=== PATIENT | male | born 1970 | race Caucasian/White ===

== ENCOUNTER → 2021-07-12 14:00 | Outpatient (CLI) | payer OTHER, SELFPAY ==
[2021-07-12 14:50] LABS: Hematocrit 43.2 % (40-54); Hemoglobin 14.4 g/dL (13.0-16.5); Mean Corp Hgb Conc 33.3 g/dL (32-36); Mean Corpuscular Hgb 31.4 pg (27.0-32.0); Mean Corpuscular Volume 94.1 fL (80-94); Mean Platelet Vol. 8.8 fl (6.2-12.0); Platelet Count 348 K/mm3 (150-450); RBC Distribution Width CV 13.2 % (11.6-14.6); RBC Distribution Width SD 45.3 fl (35.1-43.9); Red Blood Count 4.59 M/mm3 (4.6-6.2); White Blood Count 8.2 K/mm3 (4.4-11.0)
[2021-07-12 15:03] LABS: Hemoglobin A1c 6.6 % (3.8-5.6)
[2021-07-12 15:04] LABS: Anion Gap 7 (5-15); BUN 17 mg/dL (7-18); BUN/Creat Ratio 15.6 RATIO (10-20); Calcium,Total 9.3 mg/dL (8.5-10.1); Chloride 103 mmol/L (98-107); Creatinine, Serum 1.09 mg/dL (0.70-1.30); EST Glomerular Filtration Rate 76 mL/min (>60); Est Glom Filt Rate - Afr Amer 91 mL/min (>60); Glucose 95 mg/dL (74-106); Potassium 3.8 mmol/L (3.5-5.1); Sodium Level 139 mmol/L (136-145)
== END ==
PROVIDERS: PCP Nurse Practitioner Family; Referring Provider Physician Assistant; Visit Provider Physician Assistant
DX: Z01.818 Encounter for other preprocedural examination (principal)
CPT/HCPCS: 36415; 80048; 83036; 85027; 93005

== ENCOUNTER 2021-10-16 10:30 | Outpatient (RCR) | payer OTHER, SELFPAY ==
--- NOTE | 2021-07-27 11:32 | HP.PTEVAL_ITS ---
Patient's Visit Information PERI JACKAMN is a 50 year old M referred to Physical Therapy by Ottoniel Ballard PA-C with a diagnosis of STRAIN OF MUSCLES/TENDON RTC OF LEFT SHOULDER,. Date of Evaluation: 07/27/21 Physical Therapist: Kenroy Lopez, PT, Cert MDT, OCS - Visit Plan Frequency: 1-2x /Week Duration: 3 Months Plan: S/P RTC REPAIR 07/20/21 ,~4CM TEAR 2 TENDONS. SLING 6-8 WEEKS. PT INTERVENTIONS 4-6WEEKS PHASE 1 PROM,4-6 WEEKS PHASE 2 AAROM ,PHASE 3 STRENGTH ENING RTC/SCPAULAR, MANUAL THERAPY. CP/MHP,PATIENT/FAMILY EDUACTION - Subjective This 50 y/o presents to physical therapy with RTC repair . Patient stated ~ 4cm larger tear of 2 tendons of RTC . Patient had surgery done at [facility] outpatient on 07/20/[address] Cesar. Patient d/c with sling. Patient pain oxycodone. Patient had MRI . Patient fell and injuried left shoulder hiking end of December. Patient although didn't see April. Patient is aloud to pendulums and active biceps. Denies paresthesia/tingling. Patient sleeping in recliner. Patient pain affects ability perform ADLS' ,self hygiene and housework tasks. Patient is unable to RTW. Patient goals is return to full functional use of left shoulder. RTD 07/27/21. Sling on 6-8 weeks. SOCAIL: aline iegregory. VOCATION: [employer] - Objective POSTURE: rounded shoulders. SKIN: sutures well approximate. NEURO: denies paresthesia/tingling. PROM: shoulder flexion 115 degrees, abduction in scapation 120 degrees, ER 35. MMT: NT. ELBOW AROM: WFL - Balance/Special Test Scores Quick DASH Score: 95.4525 - Goals Goal 1:: Patient to be I with HEP for RTC repair Goal Time Frame: 8-12 Weeks Goal 2:: Patient to demonstrate 75% improve for ADL's and housework acticities Goal Time Frame: 8-12 Weeks Goal 3:: Patient to improve right shoulder AROM 150 for flexion/abduction and ER 90 ,and IR l2 to improve function /ADLS' Goal Time Frame: 8-12 Weeks Goal 4:: Patient to increase strength of right RTC 4-/5 and deltoid 3+/5 to improve ADLS's and function Goal Time Frame: 8-12 Weeks Goal 5:: Patient to improve quick dash by 5-10 points to improve QOL Goal Time Frame: 8-12 Weeks - Rehabilitation Potential Physical Therapy Diagnosis: This patient had s/p RTC repair on 07/20/21 with mild pain ,decrease ROM ,strength impairs function and ADLS Rehabilitation Potential: Good - Anticipated Interventions Patient/Client Instruction: Educate patient on: Condition, Plan of Care For the Purpose of:: To decrease pain, To decrease swelling/inflammation, To increase ROM, To improve muscle performance and motor function, To improve ability to perform ADL's, To increase tolerance to activity/condition/position, To improve performance and independence with ADL's, To improve ability of physical actions for home/community/work/leisure, To improve health of tissue, To decrease soft tissue restriction, To increase flexibility/ROM, To reduce risk of recurrence Therapeutic Exercise to Include: Strength training, Postural training, Flexibilty training, Passive ROM, Dynamic Lumbar Stabilization, Scapular Strength/Stabilization Comment: PHASE 1 PROM 4-6 WEEKS,PHASE 2 PHASE AAROM,PHASE 3 STRENGTHENING For the Purpose of:: To decrease pain, To increase ROM, To improve muscle performance and motor function, To improve ability to perform ADL's, To increase tolerance to activity/condition/position, To improve performance and independence with ADL's, To improve ability of physical actions for home/community/work/leisure, To improve health of tissue, To decrease soft tissue restriction, To increase flexibility/ROM, To reduce risk of recurrence, To prevent re-injury Manual Therapy Techniques to Include: Mobilization, Passive ROM For the Purpose of:: To decrease pain, To increase ROM, To improve nutrient delivery to tissue, To increase oxygenation perfusion, To improve health of tissue, To decrease soft tissue restriction, To increase flexibility/ROM Cryotherapy (ice pack, ice massage): Yes Thermo therapy (hot pack): Yes For the Purpose of:: To decrease pain, To increase ROM, To improve health of tissue, To decrease soft tissue restriction Thank you for the opportunity to evaluate your patient. For Medicare and Medicare HMO plans, please review the plan of care and approve it. It will need to be FAXED BACK to us at [phone] for Medicare purposes. For Medicare only, by signing this I certify the plan of care. Please let me know if there are questions or concerns regarding this plan of care. Physician Signature: Date:
--- NOTE | 2021-07-27 11:34 | HP.PTEVAL_ITS ---
Patient's Visit Information PERI JACKMAN is a 50 year old M referred to Physical Therapy by Ottoniel Ballard PA-C with a diagnosis of STRAIN OF MUSCLES/TENDON RTC OF LEFT SHOULDER,PRIMARY OA LEFT SHOULDER. Date of Evaluation: 07/27/21 Physical Therapist: Kenroy Lopez, PT, Cert MDT, OCS - Visit Plan Frequency: 1-2x /Week Duration: 3 Months Plan: S/P RTC REPAIR 07/20/21 ,~4CM TEAR 2 TENDONS. SLING 6-8 WEEKS. PT INTERVENTIONS 4-6WEEKS PHASE 1 PROM,4-6 WEEKS PHASE 2 AAROM ,PHASE 3 STRENGTHENING RTC/SCPAULAR, MANUAL THERAPY. CP/MHP,PATIENT/FAMILY EDUACTION - Subjective This 50 y/o presents to physical therapy with RTC repair . Patient stated ~ 4cm larger tear of 2 tendons of RTC . Patient had surgery done at [facility] outpatient on 07/20/[address] Cesar. Patient d/c with sling. Patient pain oxycodone. Patient had MRI . Patient fell and injuried left shoulder hiking end of December. Patient although didn't see April. Patient is aloud to pendulums and active biceps. Denies paresthesia/tingling. Patient sleeping in recliner. Patient pain affects ability perform ADLS' ,self hygiene and housework tasks. Patient is unable to RTW. Patient goals is return to full functional use of left shoulder. RTD 07/27/21. Sling on 6-8 weeks. SOCAIL: . 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 SKIN: sutures well approximate. NEURO: denies paresthesia/tingling. PROM: shoulder flexion 115 degrees, abduction in scapation 120 degrees, ER 35. MMT: NT. ELBOW AROM: WFL - Balance/Special Test Scores Quick DASH Score: 95.4525 - Goals Goal 1:: Patient to be I with HEP for RTC repair Goal Time Frame: 8-12 Weeks Goal 2:: Patient to demonstrate 75% improve for ADL's and housework acticities Goal Time Frame: 8-12 Weeks Goal 3:: Patient to improve right shoulder AROM 150 for flexion/abduction and ER 90 ,and IR l2 to improve function /ADLS' Goal Time Frame: 8-12 Weeks Goal 4:: Patient to increase strength of right RTC 4-/5 and deltoid 3+/5 to improve ADLS's and function Goal Time Frame: 8-12 Weeks Goal 5:: Patient to improve quick dash by 5-10 points to improve QOL Goal Time Frame: 8-12 Weeks - Rehabilitation Potential Physical Therapy Diagnosis: This patient had s/p RTC repair on 07/20/21 with mild pain ,decrease ROM ,strength impairs function and ADLS Rehabilitation Potential: Good - Anticipated Interventions Patient/Client Instruction: Educate patient on: Condition, Plan of Care For the Purpose of:: To decrease pain, To decrease swelling/inflammation, To increase ROM, To improve muscle performance and motor function, To improve ability to perform ADL's, To increase tolerance to activity/condition/position, To improve performance and independence with ADL's, To improve ability of physical actions for home/community/work/leisure, To improve health of tissue, To decrease soft tissue restriction, To increase flexibility/ROM, To reduce risk of recurrence Therapeutic Exercise to Include: Strength training, Postural training, Flexibilty training, Passive ROM, Dynamic Lumbar Stabilization, Scapular Strength/Stabilization Comment: PHASE 1 PROM 4-6 WEEKS,PHASE 2 PHASE AAROM,PHASE 3 STRENGTHENING For the Purpose of:: To decrease pain, To increase ROM, To improve muscle performance and motor function, To improve ability to perform ADL's, To increase tolerance to activity/condition/position, To improve performance and independence with ADL's, To improve ability of physical actions for home/community/work/leisure, To improve health of tissue, To decrease soft tissue restriction, To increase flexibility/ROM, To reduce risk of recurrence, To prevent re-injury Manual Therapy Techniques to Include: Mobilization, Passive ROM For the Purpose of:: To decrease pain, To increase ROM, To improve nutrient delivery to tissue, To increase oxygenation perfusion, To improve health of tissue, To decrease soft tissue restriction, To increase flexibility/ROM Cryotherapy (ice pack, ice massage): Yes Thermo therapy (hot pack): Yes For the Purpose of:: To decrease pain, To increase ROM, To improve health of tissue, To decrease soft tissue restriction Thank you for the opportunity to evaluate your patient. For Medicare and Medicare HMO plans, please review the plan of care and approve it. It will need to be FAXED BACK to us at [phone] for Medicare purposes. For Medicare only, by signing this I certify the plan of care. Please let me know if there are questions or concerns regarding this plan of care. Physician Signature: Date:
--- NOTE | 2022-01-15 10:25 | HP.PTDCSUM ---
It has been my pleasure to treat PERI JACKMAN referred by Ottoniel Ballard PA-C, with the diagnosis of STRAIN OF MUSCLES/TENDON RTC OF LEFT SHOULDER,PRIMARY OA LEFT SHOULDER for a total of 7 visit(s). Discharge Date: Please see the following information for a summary of their discharge status. Subjective: Seen DR laurent quigley Right Shoulder Pain Intensity (Out of 10): 1 Objective/Function: AROM 150 DEGREES ,FLEXION ABD. SUPRASPINATOUS 4-/5,DELTOID 4-/5 ,SUBSCAPULARIS 4-/5. INFRASPINATOUS 3/5 Goal 1:: Patient to be I with HEP for RTC repair Goal 2:: Patient to demonstrate 75% improve for ADL's and housework acticities Goal 3:: Patient to improve right shoulder AROM 150 for flexion/abduction and ER 90 ,and IR l2 to improve function /ADLS' Goal 4:: Patient to increase strength of right RTC 4-/5 and deltoid 3+/5 to improve ADLS's and function Goal 5:: Patient to improve quick dash by 5-10 points to improve QOL Plan: Return to PT OCT 13 s/p 13 weeks 10/20/11. THUS IS D/C If there are questions or concerns regarding this patient's physical therapy, please feel free to call me at [phone]. Thank you for the referral of this patient. Sincerely, Kenroy Lopez, PT, Cert MDT, OCS Balance/Gait/Functional tests - Balance/Special Test Scores Quick DASH Score: 95.4528
== END 2021-10-16 19:00 | disposition home or self-care (01) ==
LOC: PT 10:30
PROVIDERS: PCP Nurse Practitioner Family; Referring Provider Physician Assistant; Visit Provider Physician Assistant
DX: S46.012D Strain of muscle(s) and tendon(s) of the rotator cuff of left shoulder, subsequent encounter (principal); M19.012 Primary osteoarthritis, left shoulder; X58.XXXD Exposure to other specified factors, subsequent encounter
CPT/HCPCS: 97110; 97162

== ENCOUNTER 2023-07-16 07:28 | Day surgery (SDC) | payer BC, SELFPAY ==
[2023-07-16] VITALS (7 sets, daily range): BP systolic 111–144; BP diastolic 73–91; PULSE 75–78; RESP 16–17; TEMP 36.6–36.9; O2SAT 94–96; BMI 35.6
--- NOTE | 2023-07-16 | COLBX_PTH ---
PATIENT: PERI JACKMAN LOC: EN U#:[id number] AGE/SX: 52/M ROOM: RE07/16/[address]: Dr. Zana Narayan DO : 1970 BED: DIS: 07/16/2023 SPEC #: [id number] RECD: 07/16/23 12:29 STATUS: KRISS SADIE #: [id number] TRINIDAD: 07/16/23 00:[address]: Zana Narayan DEPT: SURGICAL PATHOLOGY RECD BY: Loli Caceres ENTERED: 07/16/23 13:10 SP TYPE: COLON BX OTHR DR: Nolberto Thornton, APPLICATION DEVELOPMENT INTERN-C Tissues: Ascending colon Procedures: Surgery Specimen Level IV HEADER OPERATION: Colonoscopy - open access, biopsies PRE-OP DIAGNOSIS: Screening TISSUE SUBMITTED: Ascending colon polyp biopsy MICROSCOPIC DIAGNOSIS Ascending colon polyp, biopsy: Polypoid fragments of benign colonic mucosa. See comment. AM:kostas 07/17/2023 COMMENT Neither hyperplastic nor adenomatous change is identified. Clinical correlation is suggested. MICROSCOPIC DESCRIPTION Slides are reviewed. GROSS DESCRIPTION Received in fixative is one container labeled with the patient's name and designated ascending colon polyp biopsy. The specimen consists of multiple irregular fragments of light morales soft tissue that in aggregate measure 0.8 x 0.2 x 0.1 cm. The specimen is totally submitted in one cassette. / SJ:kostas 07/16/2023 TC:5 CPT: 45739
[2023-07-16] MEDS: Lactated Ringers 1,000 ML 15 ML IV (07:58)
--- NOTE | 2023-07-16 08:11 | HP.PCM_ITS ---
HPI - General General Date of Admission: 07/16/23 Date of Service: 07/16/23 Chief Complaint: Screening colonoscopy HPI Narrative PERI JACKMAN, is a 52 M who presents today for screening colonoscopy. He has never had a colonoscopy in the past. He does not have abdominal pain. He does not have any nausea, vomiting or diarrhea. Overall he is in fairly good health. Past medical history of hypertension, hypercholesterolemia and type 2 diabetes. All 16 review systems are negative except those pertinent positive mentioned HPI. PENDING SALE TO [facility] Medical History Arthritis Class 2 severe obesity due to excess calories with serious comorbidity and body mass index (BMI) of 36.0 to 36.9 in adult Controlled diabetes mellitus with hyperglycemia, without long-term current use of insulin Diabetes Dietary restriction Gout, unspecified High cholesterol History of pain when walking HTN (hypertension) Hyperlipidemia Wears glasses Home Medications glimepiride 4 mg tablet 4 mg PO DAILY 07/08/23 [History Last Taken 07/15/23] indapamide 2.5 mg tablet 2.5 mg PO DAILY 07/08/23 [History Last Taken 07/15/23] metformin 500 mg tablet 1,000 mg PO BID 07/08/23 [History Last Taken 07/15/23] metoprolol succinate 50 mg tablet,extended release 24 hr 50 mg PO DAILY 07/08/23 [History Last Taken 07/16/23] omega-3 fatty acids-fish oil 360 mg-1,200 mg capsule (Fish Oil) 1 cap PO DAILY 07/08/23 [History Last Taken 07/15/23] rosuvastatin 5 mg tablet 5 mg PO DAILY 07/08/23 [History Last Taken 07/15/23] sildenafil 50 mg tablet 50 mg PO DAILY PRN sexual activity 07/08/23 [History Last Taken Unknown] magnesium 250 mg tablet 250 mg PO DAILY 07/14/23 [History Last Taken 07/15/23] Allergy/AdvReac Type Severity Reaction Status Date / Time No Known Allergies Allergy Verified 07/16/23 07:57 Family History (Updated 07/08/23 @ 10:38 by Ellie Higgins) Father Diabetes Surgical History History of Achilles tendon repair Hx of rotator cuff surgery Social History (Updated 07/08/23 @ 10:40 by Ellie Higgins) household members: spouse current occupational status: employed Smoking Status: Never smoker alcohol intake: never substance use type: does not use ROS Review of Systems ROS Unobtainable: other Constitutional Constitutional: Denies fatigue, fever(s), poor appetite, weight gain or weight loss ENT HEENT: Denies mouth lesions Cardiovascular Cardiovascular: Denies abdominal bloating, abdominal edema or abdominal pain Respiratory/Chest Respiratory/Chest: Denies change in mental status, change in phlegm color, chest congestion or chest tightness Gastrointestinal Gastrointestinal: Denies belching, bloating, change in bowel habits, change in stool character, chewing difficulty, coffee ground emesis, constipation, cramping, diarrhea, dyspepsia, dysphagia, early satiety, excessive flatus, fecal incontinence, heartburn, hematemesis, hematochezia, hemorrhoids, loose stools, melena, nausea, odynophagia, rectal bleeding, tenesmus, vomiting or weight changes Genitourinary Genitourinary: Denies abdominal discomfort, burning urination or itching Musculoskeletal Musculoskeletal: Reports as per HPI; Denies muscle weakness or myalgias Integumentary Integumentary: Denies jaundice Neurologic Neurologic: Denies lack of coordination or weakness Psychiatric Psychiatric: Denies confusion, depression, memory loss, mood swings, paranoia or suicidal ideation Endocrine Endocrinology: Denies systems reviewed and no addt'l complaints, except as documented Hematologic/Lymphatic Hematologic/Lymphatic: Denies anemia, easy bleeding, easy bruising or lymphadenopathy Allergic/Immunologic Allergic/Immunologic: Denies systems reviewed and no addt'l complaints, except as documented Vital Signs Vital Signs Vital Signs: 07/16/23 07:59 07/16/23 07:59 Temperature 98.1 F Temperature Source Temporal Pulse Rate 75 Respiratory Rate 17 Respiratory Pattern Normal Blood Pressure 144/91 H Blood Pressure Mean 108 Blood Pressure Source Monitor Blood Pressure Position Semi-Fowlers Blood Pressure Location Right Arm Pulse Ox 96 Oxygen Delivery Method Room Air Weight Weight: 255 lb 11.779 oz Body Mass Index (BMI) 35.6 Physical Exam Const alert General Appearance: cooperative Orientation / Consciousness: oriented to person HEENT hearing grossly normal bilaterally Head and Scalp: normal to inspection Face and Sinus: face symmetric Nose: external nose normal Mouth: oral and palatal mucosa normal Eyes conjunctivae normal General Eye: normal appearance of both eyes Neck full ROM General: normal visual inspection Lymph Lymphatic: no lymphadenopathy noted Chest inspection of chest normal and palpation of chest normal Chest: symmetrical chest wall rise Resp normal respiratory effort Effort and Inspection: able to speak in complete sentences Cardio regular rate GI non-distended Percussion: normal to percussion Rectal Exam: deferred Neuro Speech: speech normal Gait (Neuro): normal gait Assessment & Plan Assessment/Plan (1) Encounter for screening for malignant neoplasm of colon: PLAN: He was explained alternatives, risk, benefits including not withstanding bleeding, infection, sepsis, perforation, need for emergent surgery and . He will have an ASA of 3.
[2023-07-16 08:14] LABS: Bedside Glucose 175 mg/dL (74-106)
--- NOTE | 2023-07-16 09:08 | OP.CCLET_ITS ---
07/16/2023 Shahriar Montanez Re : Colonoscopy procedure for Trey Samuels Dear Norberto This procedure was performed on Sunday, July 16, 2023. My impressions and recommendations are as follows: Impressions : - Diverticulosis in the recto-sigmoid colon and in the sigmoid colon. - One 5 mm polyp in the ascending colon, removed with a cold snare. Resected and retrieved. Recommendations : - Repeat colonoscopy in 5 years for surveillance. - Continue present medications. My findings are described in the full procedure note, which is enclosed. If I can be of further assistance, please feel free to contact me at . Sincerely, Zana Narayan, 07/16/2023 9:08:09 AM This report has been signed electronically.
--- NOTE | 2023-07-16 09:08 | OP.COLON_ITS ---
Patient Name: Trey Samuels Procedure Date: 07/16/2023 8:42 AM Date of : 1970 Age: 52 Procedure: Colonoscopy Indications: Screening for colorectal malignant neoplasm Providers: Zana Narayan DO Referring MD: Shahriar Montanez Medicines: Monitored Anesthesia Care Patient Profile: This is a 52 year old male. Refer to note in patient chart for documentation of history and physical. Last Colonoscopy: none. The patient's first colonoscopy is today. Complications: No immediate complications. Procedure: Pre-Anesthesia Assessment: - Prior to the procedure, a History and Physical was performed, and patient medications and allergies were reviewed. The patient is competent. The risks and benefits of the procedure and the sedation options and risks were discussed with the patient. All questions were answered and informed consent was obtained. Patient identification and proposed procedure were verified by the physician in the pre-procedure area. Mental Status Examination: alert and oriented. Airway Examination: normal oropharyngeal airway and neck mobility. Respiratory Examination: clear to auscultation. CV Examination: normal. Prophylactic Antibiotics: The patient does not require prophylactic antibiotics. Prior Anticoagulants: The patient has taken no anticoagulant or antiplatelet agents. ASA Grade Assessment: II - A patient with mild systemic disease. After reviewing the risks and benefits, the patient was deemed in satisfactory condition to undergo the procedure. The anesthesia plan was to use monitored anesthesia care (MAC). Immediately prior to administration of medications, the patient was re-assessed for adequacy to receive sedatives. The heart rate, respiratory rate, oxygen saturations, blood pressure, adequacy of pulmonary ventilation, and response to care were monitored throughout the procedure. The physical status of the patient was re-assessed after the procedure. After I obtained informed consent, the scope was passed under direct vision. Throughout the procedure, the patient's blood pressure, pulse, and oxygen saturations were monitored continuously. The pediatric colonoscope was introduced through the anus and advanced to the cecum, identified by the appendiceal orifice, ileocecal valve and palpation. The colonoscopy was performed without difficulty. The patient tolerated the procedure well. The quality of the bowel preparation was adequate. The ileocecal valve, appendiceal orifice, and rectum were photographed. Scope In: 8:49:48 AM Scope Withdrawal Time 0 hours 9 minutes 20 seconds Scope Out: 9:03:10 AM Total Procedure Duration Time 0 hours 13 minutes 22 seconds Findings: The perianal and digital rectal examinations were normal. A few small-mouthed diverticula were found in the recto-sigmoid colon and sigmoid colon. A 5 mm polyp was found in the ascending colon. The polyp was sessile. The polyp was removed with a cold snare. Resection and retrieval were complete. Verification of patient identification for the specimen was done. Estimated blood loss was minimal. Impression: - Diverticulosis in the recto-sigmoid colon and in the sigmoid colon. - One 5 mm polyp in the ascending colon, removed with a cold snare. Resected and retrieved. Recommendation: - Repeat colonoscopy in 5 years for surveillance. - Continue present medications. Procedure Code(s): --- Professional --- 37344, Colonoscopy, flexible; with removal of tumor(s), polyp(s), or other lesion(s) by snare technique CPT copyright 2021 [employer]. All rights reserved. The codes documented in this report are preliminary and upon making line worker review may be revised to meet current compliance requirements. Zana Narayan DO 07/16/2023 9:08:09 AM This report has been signed electronically. Number of Addenda: 0 Note Initiated On: 07/16/2023 8:42 AM
== END 2023-07-16 09:48 | disposition home or self-care (01) ==
LOC: EN 07:30 → AC 07:32
PROVIDERS: PCP Nurse Practitioner Family; Referring Provider Nurse Practitioner Family; Visit Provider Internal Medicine Gastroenterology
PROC: 0DJD8ZZ Inspection of Lower Intestinal Tract, Via Natural or Artificial Opening Endoscopic (ICD-10-PCS; CPT 45378; principal; 2023-07-16 08:25)
DX: Z12.11 Encounter for screening for malignant neoplasm of colon (principal); E11.9 Type 2 diabetes mellitus without complications; K63.5 Polyp of colon; E78.00 Pure hypercholesterolemia, unspecified; K57.30 Diverticulosis of large intestine without perforation or abscess without bleeding; I10 Essential (primary) hypertension; E66.09 Other obesity due to excess calories; Z79.899 Other long term (current) drug therapy; Z79.84 Long term (current) use of oral hypoglycemic drugs; Z68.35 Body mass index [BMI] 35.0-35.9, adult
CPT/HCPCS: 45385; 82962; 88305; J7120; J2405